=== PATIENT | female | born 1995 | race American Indian/Alaskan Native ===

== ENCOUNTER 2016-08-20 00:10 | Inpatient (IN) | payer MEDICAID ==
[~2016-08-20 00:10] MED LIST: Acetaminophen 325 MG Tab PO PRN; Carboprost Tromethamine 250 MCG/1 ML Amp IM PRN; Lactated Ringers 500 ML IV ONE; Lidocaine 1% 30 ML SDV INJECT PRN; Methylergonovine 0.2 MG/1 ML Amp IM PRN; Misoprostol 400 MCG (4 X 100 MCG TAB) RECTAL PRN; Ondansetron 4 MG/2 ML SDV IV PRN; Oxytocin/Normal Saline 30 UNIT/500 ML BAG IV SCH; Sodium Chloride 0.9% 10 ML Syringe FLUSH PRN
[2016-08-20] MEDS: Misoprostol 25 MCG (1/4 of 100 MCG) Tab VAG PRN ×4 (01:30→13:41)
[2016-08-20] MEDS ORDERED: Lactated Ringers 1,000 ML IV SCH (18:30)
[2016-08-20] MEDS ORDERED: Ondansetron 4 MG/2 ML SDV IV PRN (18:30)
[2016-08-20] MEDS ORDERED: ePHEDrine 50 MG/ML SDV IVPUSH PRN (18:30)
[2016-08-20] MEDS ORDERED: Measles, Mumps & Rubella Vaccine 0.5 ML SDV SUBCUT ONE (18:30)
[2016-08-20] MEDS ORDERED: Acetaminophen/oxyCODONE 325-5 MG Tab PO PRN (18:30)
[2016-08-20] MEDS ORDERED: Naloxone 2 MG/2 ML Syringe IVPUSH PRN (18:30)
[2016-08-20] MEDS ORDERED: diphenhydrAMINE 50 MG/ML SDV IVPUSH PRN (18:30)
[2016-08-20] MEDS ORDERED: Citric Acid/Sodium Citrate Solution 30 ML Cup PO ONE (18:50)
[2016-08-20] MEDS ORDERED: ceFAZolin 1 GM in Premix Bag 1 BAG IV ONE (18:50)
[2016-08-20] MEDS ORDERED: ceFAZolin 2 GM in Premix Bag 1 BAG IV ONE (18:51)
--- NOTE | 2016-08-20 18:59 | PCM.SN ---
- Free Text/Narrative Note: Preop. Meds and allergies reviewed w chart review. No family Hx of anesthesia complications. NPO 6 hrs. Non smoker, neg GERD. Mallampati 4. Hx impaired glocose tolerance. Hx morbid obesity. Lungs CTAB, heart RRR S1 S2. Risks r/t inability to place spinal and risks associated w poor airway as well as usual risks explained to Pt and family. No questions or concerns noted. Plan SAB w GETA backup.
[2016-08-20] MEDS ORDERED: Oxytocin/Normal Saline 30 UNITS/500 ML BAG IV SCH (19:00)
[2016-08-20] MEDS: Acetaminophen/oxyCODONE 325-5 MG Tab PO PRN (21:18)
[2016-08-20] MEDS: Ferrous Sulfate 325 MG Tab PO SCH (21:34)
[2016-08-20] MEDS: Lactated Ringers 1,000 ML IV SCH (23:20)
[2016-08-21] MEDS: Acetaminophen/oxyCODONE 325-5 MG Tab PO PRN ×6 (01:02→21:12)
[2016-08-21] MEDS: Ketorolac 30 MG/ML SDV IVPUSH SCH ×3 (01:58→10:15)
[2016-08-21] MEDS: Simethicone 80 MG Tab.Chew PO PRN ×3 (08:18→21:11)
[2016-08-21] MEDS: Prenatal Multivitamin with Calcium/Folic Acid/Iron Tab PO SCH (08:18)
[2016-08-21] MEDS: Ferrous Sulfate 325 MG Tab PO SCH (08:18)
[2016-08-21] MEDS: Docusate Sodium 100 MG Cap PO PRN ×2 (08:18→21:11)
[2016-08-21] MEDS: Lactated Ringers 1,000 ML IV SCH ×3 (08:18→13:07)
--- NOTE | 2016-08-21 08:39 | HP ---
Please see EPIC notes as well as first NST dealing with when she presented for updates. [facility] /[id number]
--- NOTE | 2016-08-21 08:42 | PN ---
DATE: 08/20/2016 SUBJECTIVE: The patient's contractions are getting stronger, described as moderate, not severe, felt in the lower abdomen, radiating to the back. She is now status post Cytotec x4. OBJECTIVE: heart tones; there were concerns with either late decelerations or shift and change in the baseline with poor reading on the tocometer. heart tones currently are in the 130 range with an acceleration noted. Vaginal exam revealed to be 2 to 3 cm, 60% effaced, -2 station, vertex suspected. Artificial rupture of membranes done after discussion with the patient yielding copious amounts of clear fluid. Thereafter, IUPC was placed without difficulty. Attempt was made to place a scalp electrode, but there was difficulty due to cervical dilation. ASSESSMENT: Intrauterine 40 weeks by 27-2/7th week ultrasound. Risk factors including impaired glucose tolerance and obesity with trichomoniasis in -treated. She is now status post Cytotec x4, artificial rupture of membranes, and IUPC placement as above. We will continue to follow maternal and status closely, nathalia for MVUs, and consider Pitocin if need be. The patient understands and agrees with the above treatment plan. [facility] /[id number]
--- NOTE | 2016-08-21 08:45 | OBOUT ---
DATE: 08/20/2016 DATE AND TIME OF NST: DATE: 08/20/2016 TIME: 1:00 to 1:16. REASON FOR NST: 1. Intrauterine at 40 weeks by 27-2/7 week's ultrasound. 2. Impaired glucose tolerance. 3. Group B Streptococcus negative. 4. Morbid obesity. 5. Trichomonas in -treated. 6. 2, para 0-0-1-0. NST INTERPRETATION: During this time period, heart tone baseline is approximately 145, and there are at least two 15 x 15-beat per minute accelerations, making this strip reactive. It is also noted to be reassuring. Tocometer reveals a potential of 1-2 contraction. ASSESSMENT/PLAN: 1. Non-stress test-reactive and reassuring. 2. Tocometer with contractions. PLAN: Please see admit history and physical for further details, which was done through [facility] and scanned through [facility]. Cytotec was placed. Of note, admit vital signs: Blood pressure 131/69, heart rate 104, temperature 98, and otherwise review of systems fully reviewed and felt to be noncontributory. Please see nurse's note for further details as well. [facility] /[id number]
--- NOTE | 2016-08-21 08:45 | PN ---
DATE: 08/20/2016 SUBJECTIVE: The patient has been feeling her contractions. OBJECTIVE: heart tones have been in the 140s range with some recurrent late deceleration. Recently, a few occasional accelerations are seen on the strip. Tocometer reveals contractions every 2 to 3 minutes. ASSESSMENT AND PLAN: Intrauterine 40 weeks by 27 and 2/7th weeks complicated by impaired glucose tolerance and now nonreassuring status. She has been status post Cytotec x4, artificial rupture of membranes, and IUPC placement. She has been given now oxygen, IV fluid boluses, and positional changes and despite this, still has continued late decelerations. Therefore, shared decision was made to proceed with primary low transverse . I did discuss the patient and her visitors risks, benefits, alternatives, and complications of including, but not limited to infection, bleeding, damage to internal organs such as bowel, bladder, tubes, uterus, sometimes fetus; rarely needing a blood transfusion or further surgery, and rare maternal or . She understands and agrees and wishes to proceed. Verbal and written consent obtained. Questions were answered. [facility] /[id number]
[2016-08-21] MEDS ORDERED: Lactated Ringers 1,000 ML IV SCH (09:00)
--- NOTE | 2016-08-21 09:04 | OR ---
DATE: 08/20/2016 PREOPERATIVE DIAGNOSES: 1. Intrauterine at 40 weeks by 27-2/7 week's ultrasound. 2. Nonreassuring status. 3. Impaired glucose intolerance. 4. Maternal anemia with hemoglobin of 10.9 upon admit. 5. Group B Streptococcus negative. 6. Morbid obesity. 7. Trichomoniasis in -treated. 8. Rubella nonimmune. 9. Left lower quadrant boils, covered with Tegaderm prior to incision and reapplied after incision closure. 10. 2, P0-0-1-0. POSTOPERATIVE DIAGNOSES: 1. Intrauterine at 40 weeks by 27-2/7 week's ultrasound-delivered. 2. Nonreassuring status. 3. Impaired glucose intolerance. 4. Maternal anemia with hemoglobin of 10.9 upon admit. 5. Group B Streptococcus negative. 6. Morbid obesity. 7. Trichomoniasis in -treated. 8. Rubella nonimmune. 9. Left lower quadrant boils, covered with Tegaderm prior to incision and reapplied after incision closure. 10. 2, P0-0-1-0. 11.Poe clamp that broke during clamping the uterine incision. It appears it is intact with no missing obvious pieces. This was discussed with patient in detail as well as the OR staff and crew and kept for review. 12.Nuchal cord x1, reduced bluntly at delivery. PROCEDURE PERFORMED: Cytotec x4, NST, artificial rupture of membranes, IUPC, and then subsequent primary low transverse with 2-layer uterine closure. MATERIALS PLANNING MANAGER: Veronica Wise MD and Winston Viramontes MS III. ANESTHESIA: Spinal. ESTIMATED BLOOD LOSS: 800 mL. IV FLUID: 1200 mL of LR, 300 mL of Pitocin. URINE OUTPUT: 300 mL of clear yellow. START: 1941 UTERINE INCISION: 1948 DELIVERY: 1950 STOP: 2015. FINDINGS: Female with scores of 7 and 9, weight pending. Broken Poe clamp noted with no obvious pieces missing with it fitting back together. DESCRIPTION OF PROCEDURE: After informed consent was obtained, the patient was brought to the operating room, where spinal anesthetic was administered. Abrams was placed in the preop under sterile conditions. Abdomen was prepped and draped in normal sterile fashion. Patient placed in supine position with left lateral tilt. Left lower quadrant region revealed a small boil, approximately 3 - 4 mm in greatest diameter with Tegaderm applied over this area, was near the left lateral margin of the presumed Pfannenstiel-type incision. A skin incision was then made on lower abdomen in transverse Pfannenstiel-type fashion. This was carried down to the fascia, scored in midline. Subcutaneous tissue was raked laterally with Arciniega retractor and fascial incision was extended in transverse fashion using cautery. Cathryn clamps x2 were used to grasp the superior aspect of fascia and rectus muscles were dissected from the fascia using sharp and blunt technique. In a similar fashion, Cathryn clamps x2, was used to grasp the inferior portion of the incision and rectus pyramidalis muscles were dissected from the fascia using sharp and blunt technique. Rectus muscles were in the midline with blunt technique. Abdominal cavity was entered in blunt technique. Incision was extended superiorly and inferiorly using blunt technique. Keshav O large retractor was then introduced and used. Lower uterine segment was identified and curvilinear incision was made on lower uterine segment at 1949 hours. Clear fluid returned. Uterine incision was extended in transverse fashion using blunt technique. vertex was then brought up through the incision with a nuchal cord that was reduced bluntly with delivery. Rest of the infant delivered without difficulty. Mouth and nares were suctioned on the patient's lap cord was doubly clamped and cut, and infant was brought to team. Then, approximately 10 mL of cord blood was obtained for labs. Placenta then delivered with gentle cord traction and fundal massage. Uterine cavity was then cleared of all blood clots and debris with lap sponge. Poe clamps were then used to grasp the lateral portions of the incision. On the left lateral portion of the incision, first Poe was placed and the distal arm broke/snapped. This was subsequently thrown to the floor with both pieces and reviewed for any missing pieces and there was not by visual inspection. Subsequently, other Poe clamps were used to grasp the incision and this was closed in a running locked fashion, tied at lateral margins with 1-0 Vicryl. Second imbricating layer was applied and then tied the lateral margins with 1-0 Vicryl. First inspection of the uterine incision revealed hemostasis. Keshav O retractor was then removed. Pericolic gutters were cleared of all blood clots and debris with lap sponge. Anterior cul-de-sac was then cleared of all blood clots and debris with lap sponge, and second and final inspection of the uterine incision and anterior cul-de-sac revealed hemostasis. Rectus muscles were then reapproximated in midline with [id number] stitch using 1-0 Vicryl. Subfascial stitch was found to be hemostatic. Fascia was closed in running fashion, tied at lateral margins with 0 looped PDS. Subcutaneous tissue was irrigated copiously. Hemostasis reassured. Skin was reapproximated with medium amor. Tegaderm was noted to fall off with removing the drape. It was reapplied to the left lower quadrant boil. Sterile Aquacel dressing was applied. Uterine fundus was firm and massaged at conclusion of the case, -2 below umbilicus. No immediate complications were noted. Sponge, lap, and needle counts were correct. The patient received 3 g of Ancef preoperatively, Pitocin per protocol, and Toradol at the conclusion of case for pain control. Mother and infant are currently stable at the time of dictation. I did visualize prior to closing the uterus and the abdomen the Poe clamp that broke, did not see any obvious missing pieces with both broken pieces fitting together nearly perfect. I did discuss this with the patient during the delivery and after delivery. We will continue to follow clinically and closely at this point in time and an IRIS will be done in regard to this. [facility] /[id number]
--- NOTE | 2016-08-21 09:07 | PCM.SN ---
- Free Text/Narrative Note: Post op. Pt alert and oriented. VSS Pt denies MUNGUIA, c/o "sore" low back, Denies parasthesias or nausea. Pain controlled. Tolerating P{O well. No anesthesia concerns noted.
[2016-08-21] MEDS ORDERED: Ketorolac 30 MG/ML SDV IVPUSH SCH (14:00)
[2016-08-21] MEDS: Ibuprofen 800 MG Tab PO PRN (23:33)
[2016-08-22] MEDS: Acetaminophen/oxyCODONE 325-5 MG Tab PO PRN ×6 (01:16→21:55)
[2016-08-22] MEDS: Simethicone 80 MG Tab.Chew PO PRN ×5 (01:16→21:54)
[2016-08-22] MEDS: Prenatal Multivitamin with Calcium/Folic Acid/Iron Tab PO SCH (09:06)
[2016-08-22] MEDS: Ibuprofen 800 MG Tab PO PRN ×2 (09:07→17:27)
[2016-08-22] MEDS: Ferrous Sulfate 325 MG Tab PO SCH (09:07)
[2016-08-22] MEDS: Docusate Sodium 100 MG Cap PO PRN ×2 (09:08→21:54)
--- NOTE | 2016-08-22 10:43 | PN ---
DATE: 08/21/2016 SUBJECTIVE: The patient is tolerating p.o.'s. Abrams is in place. She has not been ambulating at this point in time. OBJECTIVE: Vital Signs: Temperature 97.8, heart rate 83, blood pressure 115/65, and respiratory rate is 18. Lungs: Clear to auscultation bilaterally. Heart: S1 and S1. Regular rate and rhythm. Abdomen: Firm uterus felt in the umbilical region. Dressing appears to be peeling off minimally. Trace pedal edema. LABORATORY DATA: White cell count of 16.3, hemoglobin 10.2, and platelets 337. ASSESSMENT AND PLAN: Postop day #1, status post primary low transverse C- section with 2-layer uterine closure. PLAN: We will continue to follow clinically and closely. Follow for signs and symptoms of anemia. Ambulate. There has been noted to be some decreased urine output. Boluses will be given, and the patient will be followed closely. [facility] /[id number]
--- NOTE | 2016-08-22 14:51 | PN ---
DATE: 08/22/2016 Postop day #2 SUBJECTIVE: The patient is tolerating p.o., ambulating, urinating, passing flatus. PHYSICAL EXAMINATION: Vital Signs: Last of vitals updated and listed in the chart. Temperature 97.8, heart rate is 91, blood pressure 104/53, respiratory rate 18, and O2 sats 95% on room air. Lungs: Clear to auscultation bilaterally. No increased work of breathing. Heart: S1 and S2. Regular rate and rhythm. Abdomen: Firm uterus felt abdominally. Aquacel dressing appears to be peeling off minimally. Extremities: Trace pedal edema. No calf pain. ASSESSMENT: 1. Postoperative day #2 status post primary low-transverse section with 2-layer uterine closure. 2. Anemia. We will continue to follow clinically and closely. CBC tomorrow. 3. Decreased urine output yesterday. Increased significantly with fluid boluses. We will continue to follow clinically and closely. PLAN: CBC tomorrow. Possible discharge tomorrow. Discussed importance of ambulation. In terms of her dressing, we will have her shower today and then reapply another Aquacel dressing. The patient understands and agrees with the above treatment plan. [facility] /[id number]
[2016-08-23] MEDS: Acetaminophen/oxyCODONE 325-5 MG Tab PO PRN ×2 (02:55→08:47)
[2016-08-23 04:35] VITALS: BP 127/63
[2016-08-23] MEDS: Ibuprofen 800 MG Tab PO PRN (05:12)
[2016-08-23] MEDS: Ferrous Sulfate 325 MG Tab PO SCH (08:46)
[2016-08-23] MEDS: Prenatal Multivitamin with Calcium/Folic Acid/Iron Tab PO SCH (08:46)
[2016-08-23] MEDS: Docusate Sodium 100 MG Cap PO PRN (08:46)
[2016-08-23] MEDS: Simethicone 80 MG Tab.Chew PO PRN (08:46)
[2016-08-23] MEDS ORDERED: Dexamethasone 4 MG/ML SDV IV ONE (11:29)
[2016-08-23] MEDS ORDERED: SODIUM CHLORIDE IV ONE (11:29)
[2016-08-23] MEDS ORDERED: Oxytocin/Normal Saline 30 UNIT/500 ML BAG IV ONE (11:29)
[2016-08-23] MEDS ORDERED: OXYTOCIN IV ONE (11:29)
[2016-08-23] MEDS ORDERED: Lactated Ringers 1,000 ML IV ONE (11:29)
[2016-08-23] MEDS ORDERED: Ondansetron 4 MG/2 ML SDV IV ONE (11:29)
[2016-08-23] MEDS ORDERED: Morphine PF 5 MG/10 ML SDV IV ONE (11:29)
--- NOTE | 2016-08-24 09:45 | DISCH ---
ADMIT DIAGNOSES: 1. Intrauterine at 40 weeks by 27-2/7 week's ultrasound. 2. Impaired glucose tolerance. 3. Group B Streptococcus negative. 4. Obesity. 5. Trichomoniasis in -treated. 6. Rubella nonimmune. 7. 2, para 0-0-1-0. 8. Maternal anemia with hemoglobin of 10.9 upon admit. DISCHARGE DIAGNOSES: 1. Intrauterine at 40 weeks by 27-2/7 week's ultrasound-delivered. 2. Impaired glucose tolerance. 3. Group B Streptococcus negative. 4. Obesity. 5. Trichomoniasis in -treated. 6. Rubella, nonimmune. 7. 2, para 0-0-1-0. 8. Maternal anemia with hemoglobin of 10.9 upon admit. 9. Nonreassuring status. 10.Left lower quadrant boil that was covered with Tegaderm during surgery. Please see operating room report for further details. 11.Poe clamps that broke during the surgery was inspected and did not reveal any obvious pieces missing. Discussed with patient. 12.Nuchal cord x1, reduced bluntly with delivery. PROCEDURE PERFORMED: Cytotec x4, NST, artificial rupture of membranes, IUPC, and primary low transverse with 2-layer uterine closure. HISTORY OF PRESENT ILLNESS: Please see H and P. SUMMARY OF HOSPITAL COURSE: Patient was admitted on the above date with the above diagnoses, underwent the above procedures, and then went on to have a nonreassuring status and underwent a primary low transverse with 2-layer uterine closure under spinal anesthetic with an EBL 800 mL, yielding a female with scores of 7 and 9, weighing 8 pounds 13 ounce (4005 g). Please see operative report for further details. Postoperative day 1 and 2, please see progress note. Postoperative day #3, date of discharge, the patient was tolerating p.o., ambulating, urinating, passing flatus, and requesting discharge. PHYSICAL EXAMINATION: Vital Signs: Last set of vitals updated and listed in the chart. Temperature 99.2, heart rate 109, blood pressure 127/63, respiratory rate is 18. Lungs: Clear to auscultation bilaterally. Heart: S1 and S2. Regular rate and rhythm. Abdomen: Obese, firm uterus felt. Aquacel dressing appears to be intact. ROB hose are on. LABORATORY DATA: Discharge labs reveal a white cell count of 12.3, hemoglobin 9.7, platelets 317,000. CONDITION ON DISCHARGE COMPARED TO CONDITION ON ADMISSION: Improved. DISCHARGE INSTRUCTIONS: 1. Diet as tolerated. 2. Activity, no lifting more than 10 to 15 pounds. 3. No sit-ups, straining, and pelvic rest for next 6 weeks with immediate return to fertility discussed with the patient. 4. Reasons to return or go to the emergency room were discussed with the patient in detail including, but not limited to, temperature greater than 100.4, foul-smelling discharge, red, hot tender breasts, or increased vaginal bleeding. DISCHARGE MEDICATIONS: 1. Vcnf-isc-eknmdvd Tylenol or ibuprofen for pain. 2. Iron sulfate 325 b.i.d. x6 weeks. 3. Percocet 5/325 one to two q.6 hours p.r.n., #30, no refills. Discussed the use of this medication, adverse and wanted effects. FOLLOWUP: On 08/27/2016 with the baby. Did discuss the importance of followup and ramifications of not doing so as well as reasons to return or go to the emergency room in the interim with her baby. [facility] /[id number]
== END 2016-08-23 11:30 | disposition home or self-care (01) | DRG 766 ==
LOC: DL.OB 00:10 → OBSVTOIN 19:50 → DL.OB 19:50
PROVIDERS: ADMIT Family Medicine; ATTEND Family Medicine
PROC: 10D00Z1 Extraction of Products of Conception, Low, Open Approach (ICD-10-PCS; principal; 2016-08-20)
PROC: 10907ZC Drainage of Amniotic Fluid, Therapeutic from Products of Conception, Via Natural or Artificial Opening (ICD-10-PCS; 2016-08-20)
PROC: 3E0P7GC Introduction of Other Therapeutic Substance into Female Reproductive, Via Natural or Artificial Opening (ICD-10-PCS; 2016-08-20)
PROC: 10H07YZ Insertion of Other Device into Products of Conception, Via Natural or Artificial Opening (ICD-10-PCS; 2016-08-20)
PROC: 4A1H7CZ Monitoring of Products of Conception, Cardiac Rate, Via Natural or Artificial Opening (ICD-10-PCS; 2016-08-20)
PROC: 4A0HXCZ Measurement of Products of Conception, Cardiac Rate, External Approach (ICD-10-PCS; 2016-08-20)
PROC: 3E0234Z Introduction of Serum, Toxoid and Vaccine into Muscle, Percutaneous Approach (ICD-10-PCS; 2016-08-21)
DX: O76 Abnormality in fetal heart rate and rhythm complicating labor and delivery (principal); O99.814 Abnormal glucose complicating childbirth; O99.02 Anemia complicating childbirth; O99.214 Obesity complicating childbirth; A59.9 Trichomoniasis, unspecified; O75.89 Other specified complications of labor and delivery; L02.221 Furuncle of abdominal wall; O69.1XX0 Labor and delivery complicated by cord around neck, with compression, not applicable or unspecified; Z3A.40 40 weeks gestation of pregnancy; Z37.0 Single live birth; Z23 Encounter for immunization
CPT/HCPCS: 01961; 36415; 80305; 85027; 90707; A9270-GY; J0690; J1100; J1885; J2274; J2405; J2590; J7120

== ENCOUNTER 2016-08-30 00:48 | Emergency (ER) | payer MEDICAID ==
--- NOTE | 2016-08-30 01:03 | EDM.PDOC ---
ED HPI Skin/Rash - General Chief Complaint: Skin Complaint Stated Complaint: STITCHES FROM POSSIBLY TORN Time Seen by Provider: 08/30/16 01:01 Source: Reports: Patient History Limitations: Reports: No limitations - History of Present Illness INITIAL COMMENTS - FREE TEXT/NARRATIVE: 21 yo [place] Female S/P one week ago to c/o low abdomen pain. Pt. also reports she has no more pain medication. Pt. denies fever or chills Symptom Onset Date: 08/29/16 Symptom Onset Time: 18:00 Timing: Reports: still present Location, Skin: Reports: abdomen (lower abdomen ) Quality: Reports: Burning Severity: moderate Known Identified Source: yes (recent and out of pain medication ( oxycontin)) Place of Occurrence: home Sick Contact: no Associated Symptoms: Reports: no other symptoms - Related Data Allergies Allergy/AdvReac Type Severity Reaction Status Date / Time No Known Allergies Allergy Verified 08/30/16 00:56 Home Meds: Ambulatory Orders Medication Instructions Recorded Confirmed Pnv95/Iron Fum/Folic Acid 1 tab PO DAILY 05/21/16 08/30/16 [ Caplet] Past Medical History - Past Health History Medical/Surgical History: Denies Medical/Surgical History [employer] History: Reports: Other OB/BYN History: states 7 months - Infectious Disease History Infectious Disease History: Reports: Chicken pox Social & Family History - Tobacco Use Smoking Status *Q: Former Smoker Years of Tobacco use: 5 Used Tobacco, but Quit: Yes Month Tobacco Last Used: january Second Hand Smoke Exposure: No - Caffeine Use Caffeine Use: Reports: Soda - Recreational Drug Use Recreational Drug Use: No ED ROS GENERAL - Review of Systems Review Of Systems: See Below Constitutional: Reports: no symptoms HEENT: Reports: No symptoms Respiratory: Reports: No Symptoms Cardiovascular: Reports: No symptoms Endocrine: Reports: no symptoms GI/Abdominal: Reports: Abdominal pain (low abdomen in area of recent ) : Reports: no symptoms Musculoskeletal: Reports: no symptoms Skin: Reports: no symptoms Neurological: Reports: No Symptoms Psychiatric: Reports: No symptoms Hematologic/Lymphatic: Reports: no symptoms Immunologic: Reports: no symptoms ED EXAM, SKIN/RASH Exam: See Below Exam Limited By: No limitations General Appearance: alert, no apparent distress, obese Eye Exam: bilateral eye: PERRL Ears: normal external exam Nose: normal inspection Throat/Mouth: Normal inspection Head: atraumatic Neck: normal inspection Respiratory/Chest: no respiratory distress, lungs clear Cardiovascular: normal peripheral pulses, tachycardia GI/Abdominal: normal bowel sounds, tender (low mid abdomen i area if recent C- section) Back Exam: normal inspection Extremities: normal inspection Neurological: alert, oriented, CN II-XII intact Psychiatric: normal affect Skin: Wound/incision (healed well) Location, Skin: abdomen Course - Vital Signs Text/Narrative:: Case discussed with On-Call Dr. Ambriz who advised to transfer patient Last Recorded V/S: Last Vital Signs Temp 35.4 C 08/30/16 01:00 Pulse 117 H 08/30/16 01:15 Resp 18 08/30/16 01:15 BP 125/68 08/30/16 01:15 Pulse Ox 99 08/30/16 01:15 - Orders/Labs/Meds Orders: Active Orders 24 hr Category Date Time Status Abdomen Pelvis w Cont [CT] Urgent Exams 08/30/16 01:32 Taken Sodium Chloride 0.9% [Normal Saline] 1,000 ml Med 08/30/16 01:45 Active IV ASDIRECTED Medication Orders Sodium Chloride (Normal Saline) 1,000 mls @ 150 mls/hr IV ASDIRECTED JAMES Last Admin: 08/30/16 02:04 Dose: 150 mls/hr Labs: Laboratory Tests 08/30/16 08/30/16 Range/Units 01:06 01:10 WBC 16.0 H (5.0-10.0) 10^3/uL RBC 4.00 L (4.2-5.4) 10^6/uL Hgb 10.8 L (12.0-16.0) g/dL Hct 33.8 L (37.0-47.0) % MCV 84.5 (80-100) fL MCH 27.0 (27.0-34.0) pg MCHC 32.0 L (33.0-35.0) g/dL Plt Count 532 H (150-450) 10^3/uL Neut % (Auto) 68.7 (42.2-75.2) % Lymph % (Auto) 20.8 (20.5-50.1) % Reeves % (Auto) 7.4 (2-8) % Eos % (Auto) 2.8 (1.0-3.0) % Baso % (Auto) 0.3 (0.0-1.0) % Add Manual Diff Yes Neutrophils % (Manual) 62 % Band Neutrophils % 2 % Lymphocytes % (Manual) 25 % Monocytes % (Manual) 6 % Eosinophils % (Manual) 5 % Urine Color Dark yellow (YELLOW) Urine Appearance Turbid (CLEAR) Urine pH 6.5 (5.0-9.0) Ur Specific [place] 1.020 (1.005-1.030) Urine Protein 30 H (NEGATIVE) Urine Glucose (UA) Negative (NEGATIVE) Urine Ketones Negative (NEGATIVE) Urine Occult Blood Large H (NEGATIVE) Urine Nitrite Negative (NEGATIVE) Urine Bilirubin Negative (NEGATIVE) Urine Urobilinogen >=8.0 H (0.2-1.0) mg/dL Ur Leukocyte Esterase Moderate H (NEGATIVE) Urine RBC >100 H /HPF Urine WBC >100 H (0-5/HPF) /HPF Ur Epithelial Cells Moderate H /HPF Urine Bacteria Many H (0-FEW/HPF) /HPF Urine Mucus Moderate H /LPF Urine Trichomonas Present H (0/HPF) /HPF Meds: Medications Generic Name Dose Route Start Last Admin Trade Name Freq PRN Reason Stop Dose Admin Sodium Chloride 1,000 mls @ 150 mls/hr 08/30/16 01:45 08/30/16 02:04 Normal Saline IV 150 mls/hr ASDIRECTED JAMES Administration Discontinued Medications Generic Name Dose Route Start Last Admin Trade Name Freq PRN Reason Stop Dose Admin Hydrocodone Bitart/Acetaminophen 1 tab 08/30/16 01:04 08/30/16 01:11 Jamison 325-10 Mg PO 08/30/16 01:05 1 tab ONETIME ONE Administration Iopamidol 125 ml 08/30/16 01:38 Isovue-300 (61%) IVPUSH 08/30/16 01:39 ONETIME ONE Iopamidol 75 ml 08/30/16 02:23 08/30/16 02:34 Isovue-300 (61%) IVPUSH 08/30/16 02:24 75 ml ONETIME ONE Administration Iopamidol 50 ml 08/30/16 02:24 08/30/16 02:34 Isovue-300 (61%) IVPUSH 08/30/16 02:25 50 ml ONETIME ONE Administration Departure - Departure Time of Disposition: 03:27 Disposition: DC/Tfer to Other 70 Condition: good Clinical Impression: Abscess Forms: ED Department Discharge, Interfacility Transfer EMTALA - My Orders Last 24 Hours: My Active Orders 08/30/16 01:32 Abdomen Pelvis w Cont [CT] Urgent 08/30/16 01:45 Sodium Chloride 0.9% [Normal Saline] 1,000 ml IV ASDIRECTED - Assessment/Plan Last 24 Hours: My Active Orders 08/30/16 01:32 Abdomen Pelvis w Cont [CT] Urgent 08/30/16 01:45 Sodium Chloride 0.9% [Normal Saline] 1,000 ml IV ASDIRECTED
[2016-08-30] MEDS ORDERED: Acetaminophen/HYDROcodone 325-10 MG Tab PO ONE (01:04)
[2016-08-30 01:16] VITALS: BP 125/68
[2016-08-30] MEDS ORDERED: Iopamidol 612 MG/ML 100 ML Bottle IVPUSH ONE (01:38)
[2016-08-30] MEDS ORDERED: Sodium Chloride 0.9% 1,000 ML IV SCH (01:45)
[2016-08-30] MEDS ORDERED: Iopamidol 612 MG/ML 75 ML Bottle IVPUSH ONE (02:23)
[2016-08-30] MEDS ORDERED: Iopamidol 612 MG/ML 50 ML SDV IVPUSH ONE (02:24)
== END 2016-08-30 03:50 ==
LOC: DL.ED 00:48
DX: L02.211 Cutaneous abscess of abdominal wall (principal); Z79.899 Other long term (current) drug therapy; Z87.891 Personal history of nicotine dependence; Z98.890 Other specified postprocedural states
CPT/HCPCS: 36415; 74177; 81001; 85025; 96360; 96361; 99285; A9270; J7030; Q9967